=== PATIENT | female | born 1980 | race Caucasian/White ===

== ENCOUNTER 2016-06-04 08:45 | Emergency (ER) | payer OTHER ==
[2016-06-04 08:57] VITALS: BP 114/61; PULSE 100; RESP 16; TEMP 98.9
--- NOTE | 2016-06-04 09:09 | ED ---
ENT HPI - General Chief complaint: ENT Stated complaint: poss strep throat Time Seen by Provider: 06/04/16 09:01 Source: patient, RN notes reviewed Mode of arrival: ambulatory Limitations: no limitations - History of Present Illness Initial comments: Patient is a 35-year-old female presents to the emergency room for evaluation of throat pain. Patient states that throat pain for the past 3 days. Patient states her entire family has been diagnosed with strep. Patient states this morning she vomited. Patient states been having a constant headache and throat pain. Patient states taking ibuprofen and Percocet with no relief of symptoms. Patient states she's tried saltwater gargles, apple cider vinegar gargles with no relief of symptoms. Patient states she's had a fever yesterday. Patient denies abdominal pain, chest pain or ear pain. Patient denies cough or shortness of breath. - Related Data Home Medications Medication Instructions Recorded Confirmed Norgestimate-Ethinyl Estradiol 1 tab PO DAILY 12/12/15 06/04/16 [Trinessa Tablet] oxyCODONE-APAP 10-325MG [Percocet 1 tab PO Q6HR PRN 06/04/16 06/04/16 10-325 mg] Previous Rx's Medication Instructions Recorded ALPRAZolam [Xanax] 0.5 mg PO TID PRN #15 tablet 12/17/15 Doxepin [SINEquan] 10 mg PO HS PRN #30 cap 12/17/15 Gabapentin [Neurontin] 300 mg PO TID cap 12/17/15 Ibuprofen [Motrin] 600 mg PO TID PRN #0 tab 12/17/15 Sertraline [Zoloft] 100 mg PO DAILY #30 tab 12/17/15 Amoxicillin 500 mg PO Q12HR 7 Days 06/04/16 Ondansetron Odt [Zofran Odt] 4 mg PO Q8HR PRN #12 tab 06/04/16 Allergies Allergy/AdvReac Type Severity Reaction Status Date / Time guaifenesin Allergy Rapid Verified 06/04/16 08:57 Heart Rate propoxyphene napsylate Allergy Unknown Verified 06/04/16 08:57 [From Darvocet-N 100] acetaminophen AdvReac Nausea & Verified 06/04/16 08:57 [From Tylenol-Codeine #3] Vomiting & Diarrhea codeine phosphate AdvReac Nausea & Verified 06/04/16 08:57 [From Tylenol-Codeine #3] Vomiting & Diarrhea Review of Systems ROS Statement: Those systems with pertinent positive or pertinent negative responses have been documented in the HPI. ROS Other: All systems not noted in ROS Statement are negative. Past Medical History Past Medical History: Asthma, GERD/Reflux, Osteoarthritis (OA), Thyroid Disorder Additional Past Medical History / Comment(s): gallstones,migraines, hypothyroidism History of Any Multi-Drug Resistant Organisms: MRSA Date of last positivie culture/infection: 2009 MDRO Source:: face Past Surgical History: Section, Cholecystectomy, Joint Replacement, Orthopedic Surgery Additional Past Surgical History / Comment(s): KNEE REPLACEMENT LEFT KNEE X3, MULTIPLE ORTHOPEDIC SURGERIES TO LEFT KNEE. 2 C-sections Past Anesthesia/Blood Transfusion Reactions: No Reported Reaction Additional Past Anesthesia/Blood Transfusion Reaction / Comment(s): Vomitting following choleycystectomy may have been caused by the anesthetic. Past Psychological History: Anxiety, Depression, Panic Disorder Smoking Status: Current every day smoker Past Alcohol Use History: None Reported Past Drug Use History: None Reported - Past Family History none History Unknown: Yes General Exam - General Exam Comments Initial Comments: Sitting in exam room, no acute distress. Limitations: no limitations General appearance: alert, in no apparent distress Head exam: Present: atraumatic, normocephalic, normal inspection Eye exam: Present: normal appearance Expanded Throat exam: tonsillar erythema, tonsillomegaly Neck exam: Present: normal inspection Respiratory exam: Present: normal lung sounds bilaterally. Absent: respiratory distress Cardiovascular Exam: Present: regular rate, normal rhythm, normal heart sounds GI/Abdominal exam: Present: soft, normal bowel sounds. Absent: distended, tenderness, guarding, rebound, rigid Extremities exam: Present: normal inspection Back exam: Present: normal inspection Neurological exam: Present: alert, oriented X3, CN II-XII intact, normal gait Psychiatric exam: Present: normal affect, normal mood Skin exam: Present: warm, dry, intact, normal color. Absent: rash Course Vital Signs 06/04/16 08:53 Temperature 98.9 F Pulse Rate 100 Respiratory 16 Rate Blood Pressure 114/61 O2 Sat by Pulse 98 Oximetry Medical Decision Making - Medical Decision Making Patient is 35-year-old female presents to the emergency room for evaluation of throat pain and nausea. Patient's Family diagnosed with strep. Will treat patient for strep since she has been exposed to strep throat. Patient given Zofran for nausea. Advised patient to follow-up with primary care provider in 24-48 hours for reevaluation. Patient states she understands everything that was discussed with her. Return parameters discussed. Case discussed with Dr. Bhatia. Disposition Clinical Impression: Sore throat, Exposure to strep throat Disposition: HOME SELF-CARE Condition: Good Instructions: Strep Throat (ED) Additional Instructions: Take antibiotics as directed. Take Zofran as needed for nausea. Ibuprofen as needed for fever/sore throat. Saltwater gargles. Please follow up with primary care provider in 1-2 days. If any new symptom arises or symptoms worsen, return to ER as soon as possible. Prescriptions: Ondansetron Odt [Zofran Odt] 4 mg PO Q8HR PRN #12 tab PRN Reason: Nausea Amoxicillin 500 mg PO Q12HR 7 Days Referrals: Quin Whalen MD [Primary Care Provider] - 1-2 days Time of Disposition: 09:12
[2016-06-04] MEDS ORDERED: AMOXICILLIN 500 MG CAP PO STA (09:10)
[2016-06-04] MEDS ORDERED: ONDANSETRON ODT 4 MG TAB PO STA (09:10)
== END 2016-06-04 09:22 | disposition home or self-care (01) ==
LOC: EC 08:45
DX: J02.9 Acute pharyngitis, unspecified (principal); M19.90 Unspecified osteoarthritis, unspecified site; F41.0 Panic disorder [episodic paroxysmal anxiety]; F41.9 Anxiety disorder, unspecified; F32.9 Major depressive disorder, single episode, unspecified; F17.200 Nicotine dependence, unspecified, uncomplicated; Z20.818 Contact with and (suspected) exposure to other bacterial communicable diseases; Z88.8 Allergy status to other drugs, medicaments and biological substances; Z88.5 Allergy status to narcotic agent; Z79.3 Long term (current) use of hormonal contraceptives; Z79.899 Other long term (current) drug therapy; Z86.14 Personal history of Methicillin resistant Staphylococcus aureus infection
CPT/HCPCS: 87081; 87430; 99284

== ENCOUNTER → 2017-02-14 | Outpatient (CLI) | payer OTHER ==
[2017-02-14 13:03] LABS: Basophils % (A) 0 %; Eosinophils # (A) 0.1 k/uL (0-0.7); Eosinophils % (A) 1 %; HCT 42.8 % (34.0-46.0); HGB 13.7 gm/dL (11.4-16.0); Lymphocytes # (A) 3.1 k/uL (1.0-4.8); Lymphocytes % (A) 35 %; MCH 31.1 pg (25.0-35.0); MCV 97.3 fL (80.0-100.0); Mean Platelet Volume 7.5; Monocytes # (A) 0.6 k/uL (0-1.0); Monocytes % (A) 7 %; Neutrophils # (A) 4.7 k/uL (1.3-7.7); Neutrophils % (A) 54 %; Platelet Count 282 k/uL (150-450); RDW 13.4 % (11.5-15.5); WBC 8.7 k/uL (3.8-10.6)
== END | disposition home or self-care (01) ==
LOC: LABPAT 12:32
PROVIDERS: ATTEND Obstetrics & Gynecology
DX: Z01.818 Encounter for other preprocedural examination (principal)
CPT/HCPCS: 36415; 85025

== ENCOUNTER 2017-02-15 09:23 | Day surgery (SDC) | payer OTHER ==
[2017-02-09 23:10] VITALS: BMI 23.2
--- NOTE | 2017-02-14 14:37 | HP ---
HISTORY AND PHYSICAL HISTORY OF PRESENT ILLNESS: The patient is a 36-year-old 3, para 3-0-0-3, who was referred from another provider for evaluation of contraceptive options. She presented specifically requesting permanent contraception with tubal ligation. I discussed multiple other options of reversible and long-term contraception which she declined in favor of permanent sterilization. PAST MEDICAL HISTORY: Significant for anemia and reported anxiety. PAST SURGICAL HISTORY: She had a section in 1999 and 2007, she had a cholecystectomy in 2014. She had knee replacements with knee surgeries between 2009 and 2015. There was no reported anesthetic concerns. OBSTETRICAL HISTORY: 3, para 3-0-0-3 with 1 vaginal delivery followed by 2 sections. GYNECOLOGIC HISTORY: Is unremarkable with no history of any infections to include STDs. FAMILY HISTORY: Noncontributory. SOCIAL HISTORY: The patient is and is a 1 pack per day smoker. She denies any significant alcohol or any other social concerns. CURRENT MEDICATIONS: Include: 1. Baclofen 10 mg 3 times daily. 2. Percocet 5/325 mg q.6 hours p.r.n. ALLERGIES: Are to GUAIFENESIN WHICH CAUSES TACHYCARDIA. She reports reportedly also has had REACTIONS TO DARVOCET AND TYLENOL WITH CODEINE. REVIEW OF SYSTEMS: Is confined to history of present illness. PHYSICAL EXAMINATION: Vital signs are stable. The patient is afebrile. In general, this is a well- developed, well-nourished white female in no acute distress. HEENT demonstrates PERRLA, EOMI, her oropharynx is clear. NECK: Supple without adenopathy and the thyroid is normal to palpation. Her heart has regular rhythm and rate without murmur. Her lungs are clear to auscultation bilaterally in all reed. Her abdomen is nondistended, has normoactive bowel sounds, soft, nontender, without any palpable masses, hepatosplenomegaly, or hernias. Her extremities without any cyanosis, clubbing, or edema and are nontender to palpation bilaterally. Pelvic examination demonstrates normal external genitalia and BUS with normal vaginal mucosa and cervix. There is no cervical motion tenderness. Uterus is 4-5 weeks in size, acutely retroverted, mobile, nontender, normal in shape. The adnexa are normal nontender without mass bilaterally. ASSESSMENT: Undesired fertility. We discussed multiple options for contraception including long- term but reversible methods. The patient has declined all of these in favor of proceeding to laparoscopic bilateral tubal occlusion using Filshie clips. The risks and complications of the procedure have been thoroughly discussed including the risk for bleeding, bleeding requiring transfusion, infection, and injury to local structures to specifically include the bowel, bladder, and ureters. I have given special attention to the concerns for bowel injury given her history of previous surgeries, specifically cholecystectomy. She understood all this and has agreed to proceed. We are scheduled for the procedure as outlined above on the morning of February 15, 2017. MMODL / IJN: [id number] /
[~2017-02-15 09:23] MED LIST: DEXAMETHASONE SOD PHOSPHATE 10 MG/ML 1 ML VIAL IV ONE; LACTATED RINGERS 1,000 ML IV SCH; LIDOCAINE 1% 20 ML VIAL (10MG/ML) FOR IV START INTRADERMA PRN; MIDAZOLAM 2 MG/2 ML VIAL IV PRN; ONDANSETRON 4 MG/2 ML VIAL IVP ONE; Pre Op ABX Message 1 EACH MISC MISCELLANE ONE; SCOPOLAMINE 1.5MG/72HR PATCH TRANSDERM ONE
[2017-02-15] MEDS ORDERED: ONDANSETRON 4 MG/2 ML VIAL IVP PRN (10:18)
[2017-02-15] MEDS ORDERED: PROPOFOL 10 MG/ML 20 ML VIAL IV ONE (10:18)
[2017-02-15] MEDS ORDERED: LIDOCAINE 1% INJ 10MG/ML (20 ML MDV) ONE (10:18)
[2017-02-15] MEDS ORDERED: HYDROmorphone (PF) 1 MG/ML ONE (10:18)
[2017-02-15] MEDS ORDERED: SUCCINYLCHOLINE CHLORIDE 100 MG/5 ML SYR IV ONE (10:18)
[2017-02-15] MEDS ORDERED: GLYCOPYRROLATE 0.2 MG/ML 2 ML VIAL ONE (10:18)
[2017-02-15] MEDS ORDERED: ROCURONIUM BROMIDE 10 MG/ML 10 ML VIAL IV ONE (10:18)
[2017-02-15] MEDS ORDERED: KETOROLAC 30 MG/ML 1 ML VIAL IVP PRN (10:18)
[2017-02-15] MEDS ORDERED: IBUPROFEN 600 MG TAB PO PRN (10:18)
[2017-02-15] MEDS ORDERED: fentaNYL (PF) 50 MCG/ML 2 ML AMP ONE (10:18)
[2017-02-15] MEDS ORDERED: NEOSTIGMINE 1 MG/ML 10 ML VIAL ONE (10:18)
[2017-02-15] MEDS ORDERED: METOCLOPRAMIDE 5 MG/ML 2 ML VIAL IVP PRN (10:18)
[2017-02-15] MEDS ORDERED: MIDAZOLAM 2 MG/2 ML VIAL ONE (10:18)
[2017-02-15] MEDS ORDERED: SIMETHICONE 80 MG CHEWABLE PO PRN (10:18)
[2017-02-15] MEDS ORDERED: diphenhydrAMINE 50 MG/ML 1 ML VIAL IVP PRN (10:18)
[2017-02-15] MEDS ORDERED: LACTATED RINGERS 1,000 ML IV SCH (10:30)
[2017-02-15] MEDS ORDERED: BUPIVACAINE (PF) 0.5% 30 ML VIAL SQ ONE (10:37)
--- NOTE | 2017-02-15 10:56 | P.OP ---
Date of Procedure: 02/15/17 Preoperative Diagnosis: #1. Undesired fertility Postoperative Diagnosis: Same Procedure(s) Performed: #1. Laparoscopic bilateral tubal occlusion using Filshie clips Anesthesia: TRINO Surgeon: Danny Mccauley Estimated Blood Loss (ml): 5 IV fluids (ml): 800 Urine output (ml): 5 Pathology: none sent Condition: stable Disposition: PACU Operative Findings: Preoperative pelvic examination demonstrated an acutely retroverted 4-5 week mobile normal shaped uterus with normal adnexa bilaterally. Intraoperatively, these findings were confirmed. There was no evidence of any pathology in the pelvis nor any seen in the upper abdomen though there was an omental adhesion to near the umbilicus which was noted after placement of the optical trocar which initially was noted to be underneath the omentum but able to be drawn back and removed above it ultimately. Description of Procedure: The patient was prepped and draped in usual fashion after general endotracheal anesthesia was administered by the anesthesiologist. A speculum was placed after draining the bladder of approximately 5 mL of clear yusra urine. The anterior lip of the cervix was grasped with a single-tooth tenaculum and an acorn cannula placed for manipulation. Attention was then turned to the abdomen where a site was selected in a vertical fold of the umbilicus allowing for a 5 mm incision in the vertical plane. A 5 mm optical trocar was then inserted without difficulty and a pneumoperitoneum infused. The omentum was initially noted to be above the level of the tip of the trocar. As result the trocar was gradually brought back and out of the omentum until a clear view of the pelvis was obtained. Trendelenburg positioning was utilized and a site was selected in the midline approximately 4-5 cm above the pubic symphysis in the midline where an 8 mm incision was made in the transverse plane allowing insertion of an 8 mm trocar under direct visualization without difficulty. The blunt probe was utilized to sweep the bowel from the pelvis. The findings are as noted above. All findings in the pelvis appeared normal with normal uterus, tubes, and ovaries. There was no evidence of endometriosis or adhesive disease in the pelvis at all. The probe was replaced with a Filshie clip applicator which was utilized to place a Filshie clip across the entire isthmic portion of the right fallopian tube approximately 2-3 cm above the cornu of the uterus where was firmly affixed. A similar operation was carried out on the left side without difficulty. As no further pathology was noted anywhere in the abdomen or pelvis, the pneumoperitoneum was evacuated and the trochars removed under direct visualization. There was minimal ongoing bleeding. Estimated blood loss for the case was approximately 5 mL or less. The skin incisions were closed with interrupted subcuticular stitches of 4-0 Vicryl followed by Steri- Strips placed with Mastisol. The incisions were infused with a total of 10 mL of half percent Marcaine without epinephrine equally divided between the 2 incisions. All sponge, instrument, and needle counts were correct. There were no compilations. The patient tolerated the procedure well and proceeded to the recovery room in stable condition.
[2017-02-15 11:14] VITALS: TEMP 97.9
[2017-02-15] MEDS: HYDROmorphone 0.5 MG/0.5 ML SYRINGE IVP PRN ×2 (11:23→11:31)
[2017-02-15] MEDS ORDERED: diphenhydrAMINE 50 MG/ML 1 ML VIAL IVP ONE (11:31)
[2017-02-15] MEDS: MEPERIDINE 50 MG/ML SYRINGE IVP ONE ×2 (12:15→12:22)
[2017-02-15 12:57] VITALS: BP 99/63; PULSE 62; RESP 18
== END 2017-02-15 13:01 | disposition home or self-care (01) ==
LOC: OR 09:23
PROVIDERS: ATTEND Obstetrics & Gynecology
DX: Z30.2 Encounter for sterilization (principal); F41.9 Anxiety disorder, unspecified; M19.90 Unspecified osteoarthritis, unspecified site; K21.9 Gastro-esophageal reflux disease without esophagitis; J45.909 Unspecified asthma, uncomplicated; F17.200 Nicotine dependence, unspecified, uncomplicated; Z79.1 Long term (current) use of non-steroidal anti-inflammatories (NSAID); Z79.899 Other long term (current) drug therapy; Z88.5 Allergy status to narcotic agent; Z88.8 Allergy status to other drugs, medicaments and biological substances
CPT/HCPCS: 81025; 58671; J2250; J1200; J1100; J2710; J2175; J2405; J2001; J3010; J1885; J1170 ×2; J0330; J2704

== ENCOUNTER 2020-04-23 17:07 | Emergency (ER) | payer OTHER, BC ==
[2020-04-23 18:18] LABS: Appearance,Urine Clear (Clear); Bacteria,Urine Rare /hpf; Bilirubin,Urine Negative (Negative); Blood,Urine Negative (Negative); Color,Urine Light Yellow; Glucose,Urine (UA) Negative (Negative); Ketones,Urine Negative (Negative); Leukocyte Esterase,Urine Trace (Negative); Nitrite,Urine Negative (Negative); PH, Urine 5.5 (5.0-8.0); Protein,Urine Negative (Negative); Specific Gravity,Urine 1.006 (1.001-1.035); Squamous Epithelial Cell,Urine 1 /hpf (0-4); Urobilinogen,Urine <2.0 mg/dL (<2.0); WBC,Urine <1 /hpf (0-5)
--- NOTE | 2020-04-23 19:08 | CT ---
EXAMINATION TYPE: CT abdomen pelvis wo con DATE OF EXAM: 04/23/2020 COMPARISON: 08/25/2013 HISTORY: Possible renal stone, abdomen pain CT DLP: 382.2 mGycm Automated exposure control for dose reduction was used. Images obtained from the diaphragm to the floor the pelvis with no contrast. The lung bases are clear. There is no pleural effusion. Heart size is normal. There is no pericardial effusion. Liver spleen stomach pancreas appear normal. The bile ducts are not dilated. There are clips from cho lecystectomy. There is no adrenal mass. Kidneys have normal size. There is some fullness of the left and right adrián l pelvis. The ureters are not dilated. There is no retroperitoneal adenopathy. Bladder distends bert hly. There is no inguinal hernia. There is small amount of free fluid in the cul-de-sac. Uterus is re troverted. Lumbar vertebra have normal spacing and alignment. Posterior elements are intact. The bony pelvis is intact. Hip joints appear normal. Appendix appears normal and is posterior and medial. There is atherosclerotic vascular calcification. There is no mesenteric edema. There is no ascites or free air. There is no bowel obstruction. IMPRESSION: Compared to old exam there is enlargement of the left and right renal pelvis. No renal or ureteral ca lculus identified. Normal appendix. There is small amount of free fluid in the cul-de-sac.
[2020-04-23] MEDS ORDERED: CEPHALEXIN 500 MG CAP PO STA (19:32)
[2020-04-23] MEDS ORDERED: FLUCONAZOLE 150 MG TAB PO STA (19:32)
--- NOTE | 2020-04-23 19:35 | ED ---
Female Urogenital HPI - General Chief complaint: Urogenital Stated complaint: Kidney pain Time Seen by Provider: 04/23/20 17:35 Source: patient Mode of arrival: ambulatory Limitations: no limitations - History of Present Illness Initial comments: Patient is a 39-year-old female with no past medical history who presents to the emergency department with reported UTI symptoms. Patient states that for the past week she has had suprapubic abdominal pain and burning with urination. She did have some old Keflex at home for which she started taking. States her symptoms improved however got worse. States that the pain has now extended up to her left flank. No history of kidney stones. Denies hematuria. No abnormal vaginal bleeding or discharge. Patient does have a history of a tubal. Denies any changes in her bowel habits. No other alleviating, precipitating or modifying factors Last Menstrual Period: 03/26/20 - Related Data Home Medications Medication Instructions Recorded Confirmed oxyCODONE-APAP 10-325MG [Percocet 1 tab PO TID PRN 06/04/16 02/08/17 10-325 mg] ALPRAZolam [Xanax] 0.5 mg PO DAILY PRN 02/08/17 02/08/17 Baclofen 10 mg PO TID PRN 02/08/17 02/08/17 Ibuprofen [Motrin] 200 - 400 mg PO BID PRN 02/08/17 02/08/17 Previous Rx's Medication Instructions Recorded Cephalexin [Keflex] 500 mg PO Q6HR #28 cap 04/23/20 Fluconazole [Diflucan] 150 mg PO ONCE #1 tab 04/23/20 Allergies Allergy/AdvReac Type Severity Reaction Status Date / Time guaifenesin Allergy Rapid Verified 04/23/20 17:37 Heart Rate propoxyphene napsylate Allergy "slow Verified 04/23/20 17:37 [From Darvocet-N 100] pulse" acetaminophen AdvReac Nausea & Verified 04/23/20 17:37 [From Tylenol-Codeine #3] Vomiting & Diarrhea codeine phosphate AdvReac Nausea & Verified 04/23/20 17:37 [From Tylenol-Codeine #3] Vomiting & Diarrhea Review of Systems ROS Statement: Those systems with pertinent positive or pertinent negative responses have been documented in the HPI. ROS Other: All systems not noted in ROS Statement are negative. Past Medical History Past Medical History: Asthma, GERD/Reflux, Osteoarthritis (OA) Additional Past Medical History / Comment(s): gallstones, migraines, fast pulse from caffeine intake, History of Any Multi-Drug Resistant Organisms: MRSA Date of last positivie culture/infection: 2009 MDRO Source:: face Past Surgical History: Section, Cholecystectomy, Joint Replacement, Orthopedic Surgery Additional Past Surgical History / Comment(s): marc KNEE REPLACEMENT (LEFT KNEE X3), MULTIPLE ORTHOPEDIC SURGERIES TO LEFT KNEE, arthroscopy marc knees Past Anesthesia/Blood Transfusion Reactions: Previous Problems w/ Anesthesia, Postoperative Nausea & Vomiting (PONV) Additional Past Anesthesia/Blood Transfusion Reaction / Comment(s): Vomitting following choleycystectomy(clip slipped per pt) , has had low BP after surgery Past Psychological History: Anxiety, Panic Disorder Smoking Status: Current every day smoker Past Alcohol Use History: None Reported Past Drug Use History: None Reported - Past Family History Mother Family Medical History: No Reported History none History Unknown: Yes General Exam Limitations: no limitations Course Vital Signs 04/23/20 04/23/20 17:35 20:03 Temperature 98.1 F 98.6 F Pulse Rate 99 74 Respiratory 18 15 Rate Blood Pressure 105/66 132/71 O2 Sat by Pulse 99 98 Oximetry Medical Decision Making - Medical Decision Making Upon arrival the patient is placed in room 32. A thorough history and physical exam is performed. Patient does provide a urine sample which demonstrates trace esterase with rare bacteria. Patient is sent for a CT with her permission and without testing. Demonstrates enlargement of the left right renal pelvis however no renal or ureteral calculus. Patient is given a dose of Keflex. Requesting Diflucan as she normally gets yeast infections with antibiotics. Patient given a dose in the emergency department. Patient is prescribed Keflex 4 times a day. Also given a second dose of Diflucan to take after her Keflex is finished. Return to the emergency room for any new or worsening symptoms. Follow up with her primary care doctor in 2 to 4 days. Patient discharged in stable condition - Lab Data Lab Results 04/23/20 Range/Units 17:59 Urine Color Light Yellow Urine Appearance Clear (Clear) Urine pH 5.5 (5.0-8.0) Ur Specific Walker 1.006 (1.001-1.035) Urine Protein Negative (Negative) Urine Glucose (UA) Negative (Negative) Urine Ketones Negative (Negative) Urine Blood Negative (Negative) Urine Nitrite Negative (Negative) Urine Bilirubin Negative (Negative) Urine Urobilinogen <2.0 (<2.0) mg/dL Ur Leukocyte Esterase Trace H (Negative) Urine WBC <1 (0-5) /hpf Ur Squamous Epith Cells 1 (0-4) /hpf Urine Bacteria Rare H (None) /hpf Disposition Clinical Impression: UTI (urinary tract infection) Disposition: HOME SELF-CARE Condition: Stable Instructions (If sedation given, give patient instructions): Urinary Tract Infection in Women (ED) Additional Instructions: Please follow up with your primary care doctor in 2-4 days. Return to the emergency room for any new or worsening symptoms Prescriptions: Fluconazole [Diflucan] 150 mg PO ONCE #1 tab Cephalexin [Keflex] 500 mg PO Q6HR #28 cap Is patient prescribed a controlled substance at d/c from ED?: No Referrals: Quin Whalen MD [Primary Care Provider] - 1-2 days Time of Disposition: 19:35
[2020-04-23 20:05] VITALS: BP 132/71; PULSE 74; RESP 15; TEMP 98.6
== END 2020-04-23 20:03 | disposition home or self-care (01) ==
LOC: EC 17:07
DX: N39.0 Urinary tract infection, site not specified (principal); J45.909 Unspecified asthma, uncomplicated; M19.90 Unspecified osteoarthritis, unspecified site; F41.9 Anxiety disorder, unspecified; F17.200 Nicotine dependence, unspecified, uncomplicated; Z90.49 Acquired absence of other specified parts of digestive tract
CPT/HCPCS: 74176; 81001; 96372; 96376; 99284

== ENCOUNTER 2020-12-21 11:03 | Emergency (ER) | payer BC, OTHER ==
--- NOTE | 2020-12-21 13:48 | ED ---
General Adult HPI - General Chief complaint: Abdominal Pain Stated complaint: abd pain Time Seen by Provider: 12/21/20 12:46 Source: patient, RN notes reviewed Mode of arrival: ambulatory Limitations: no limitations - History of Present Illness Initial comments: 40-year-old female presents to the emergency department with multiple complaints. Patient is most concerned about stool changes that have occurred since June 2020. States she has observed worms in her stool. Reports previous treatment included eating pumpkin seeds, but has not had any prescribed medications. Patient states she saw a worm in her stool as morning. Patient denies abdominal pain, but does report appetite changes stating that she is working seven 12s per week and today has been her first day off in several weeks. States she has been consuming large amounts of caffeine instead of eating healthy foods. Patient also complains of oral mucosal irritation and cracking at the angles of her mouth. This is been an ongoing issue that she attributes to drinking a lot of pop and monster energy drinks. However patient states she is concerned about a possible oral fungal infection after reading about the symptoms online. Patient complains of vaginal discharge that varies from pink to slightly bloody to best for the past 4-6 weeks. States she has been with a new sexual partner for the past year and is somewhat concerned about a sexually transmitted infection. States she has not had regular PROGRAM OFFICER care for the past several years. Also complains of urinary frequency, but denies burning or discomfort. Patient denies fever, chills, headache, dizziness, chest pain, and abdominal pain. - Related Data Home Medications Medication Instructions Recorded Confirmed oxyCODONE-APAP 10-325MG [Percocet 0.5 tab PO DAILY 06/04/16 12/21/20 10-325 mg] Previous Rx's Medication Instructions Recorded Mebendazole [Emverm chew] 100 mg PO BID 3 Days #6 tab 12/21/20 Nystatin 5 ml PO QID 7 Days #140 ml 12/21/20 Allergies Allergy/AdvReac Type Severity Reaction Status Date / Time guaifenesin Allergy Rapid Verified 12/21/20 14:33 Heart Rate propoxyphene napsylate Allergy "slow Verified 12/21/20 14:33 [From Darvocet-N 100] pulse" acetaminophen AdvReac Nausea & Verified 12/21/20 14:33 [From Tylenol-Codeine #3] Vomiting & Diarrhea amoxicillin [From Augmentin] AdvReac Unknown Verified 12/21/20 14:33 clavulanic acid AdvReac Unknown Verified 12/21/20 14:33 [From Augmentin] codeine phosphate AdvReac Nausea & Verified 12/21/20 14:33 [From Tylenol-Codeine #3] Vomiting & Diarrhea Review of Systems ROS Statement: Those systems with pertinent positive or pertinent negative responses have been documented in the HPI. ROS Other: All systems not noted in ROS Statement are negative. Past Medical History Past Medical History: Asthma, GERD/Reflux, Osteoarthritis (OA) Additional Past Medical History / Comment(s): gallstones, migraines, fast pulse from caffeine intake, History of Any Multi-Drug Resistant Organisms: MRSA Date of last positivie culture/infection: 2009 MDRO Source:: face Past Surgical History: Section, Cholecystectomy, Joint Replacement, Orthopedic Surgery Additional Past Surgical History / Comment(s): marc KNEE REPLACEMENT (LEFT KNEE X3), MULTIPLE ORTHOPEDIC SURGERIES TO LEFT KNEE, arthroscopy marc knees Past Anesthesia/Blood Transfusion Reactions: Previous Problems w/ Anesthesia, Postoperative Nausea & Vomiting (PONV) Additional Past Anesthesia/Blood Transfusion Reaction / Comment(s): Vomitting following choleycystectomy(clip slipped per pt) , has had low BP after surgery Past Psychological History: Anxiety, Panic Disorder Smoking Status: Current every day smoker Past Alcohol Use History: None Reported Past Drug Use History: None Reported - Past Family History Mother Family Medical History: No Reported History none History Unknown: Yes General Exam Limitations: no limitations (Well-developed, well-nourished female in no acute distress.) General appearance: alert, in no apparent distress ENT exam: Present: other (Cracked skin noted at the angles of the mouth bilaterally; oral mucosa intact with no erosions, lesions, or vesicles noted.) Neck exam: Present: normal inspection. Absent: tenderness, meningismus, lymphadenopathy Respiratory exam: Present: normal lung sounds bilaterally. Absent: respiratory distress, wheezes, rales, rhonchi, stridor Cardiovascular Exam: Present: regular rate, normal rhythm, normal heart sounds. Absent: systolic murmur, diastolic murmur, rubs, gallop, clicks GI/Abdominal exam: Present: soft, normal bowel sounds, other (Patient provides a picture of stool that she passed this morning and identifies an area that she states is worm. Patient reports other members of her family have had to be treated for parasitic infections in the past 6 months.). Absent: distended, tenderness, guarding, rebound, rigid Rectal exam: Present: normal inspection External exam: Present: normal external exam. Absent: erythema, lesions Speculum exam: Present: vaginal bleeding (Scant amount of thin bleeding noted upon speculum exam; no obvious vaginal discharge; no lesions, abrasions, or erythema noted) By manual exam: Present: normal by manual exam. Absent: cervical motion tenderness Back exam: Present: normal inspection. Absent: CVA tenderness (R), CVA tenderness (L) Neurological exam: Present: alert, oriented X3, CN II-XII intact Psychiatric exam: Present: normal affect, normal mood Skin exam: Present: warm, dry, intact, normal color. Absent: rash Course Vital Signs 12/21/20 12/21/20 11:35 16:40 Temperature 97.2 F L 98.2 F Pulse Rate 107 H 74 Respiratory 18 16 Rate Blood Pressure 107/71 129/70 O2 Sat by Pulse 100 99 Oximetry Medical Decision Making - Medical Decision Making 40-year-old female is evaluated for multiple complaints, including vaginal discharge and bleeding, stool changes since June, urinary frequency, and oral mucosal discomfort at the angles of her mouth. Patient reports small amount of vaginal bleeding since November 28. Upon exam, there is thin, dark red vaginal bleeding. Cervix is nontender, not erythematous, nor irritated in appearance. Bimanual exam does not produce CMT or adnexal discomfort. She was instructed to reestablish care with PROGRAM OFFICER for further evaluation and treatment. Vaginal discharge is not present upon exam. Due to patient's description and concern for STI, swabs were collected and patient was given treatment a to discharge she will have difficulty with follow-up. Patient instructed on safe sex practices. Patient also complained of urinary frequency. Patient has been observed drinking 2 bottles of water and one 20 ounce Pepsi. Urinalysis was negative. Patient has no back, flank, or suprapubic pain; she is afebrile and has no dysuria. Regarding the stool changes, patient will be prescribed mebendazole for parasitic treatment; she was unable to provide a stool specimen while present today. Also suggested obtaining [id number] Pin-Away if unable to get the mebendazole prescription. Lastly, patient has complained about oral mucosal discomfort with dry cracking skin noted at the angles of her mouth. Discussed dietary deficit including iron and/or B12 versus oral irritating agents such as excessive consumption of pop versus oral fungal etiology. Patient is concerned that this is an infectious process therefore nystatin swish and spit was prescribed and patient was instructed on proper use. Follow-up care was reviewed with patient. Return parameters were discussed in detail. Patient verbalizes understanding and agrees with this plan. This case was discussed with my attending Dr. Martin. - Lab Data Lab Results 12/21/20 12/21/20 Range/Units 13:50 15:40 Urine Color Light Yellow Urine Appearance Clear (Clear) Urine pH 7.0 (5.0-8.0) Ur Specific [place] 1.003 (1.001-1.035) Urine Protein Negative (Negative) Urine Glucose (UA) Negative (Negative) Urine Ketones Negative (Negative) Urine Blood Negative (Negative) Urine Nitrite Negative (Negative) Urine Bilirubin Negative (Negative) Urine Urobilinogen <2.0 (<2.0) mg/dL Ur Leukocyte Esterase Negative (Negative) Trichomonas Ag (Rapid) Negative (Negative) Disposition Clinical Impression: Vaginal discharge, Parasites in stool, Angular cheilitis Disposition: HOME SELF-CARE Condition: Stable Instructions (If sedation given, give patient instructions): Vaginal Discharge (ED), Dry Mouth (ED) Additional Instructions: Follow-up with PROGRAM OFFICER for vaginal bleeding. Take mebendazole or OTC Pin-Away for suspected parasite. Tke Oral antifungal. If any of your pelvic cultures were positive, you will receive a call, however you have received appropriate treatment. In the meantime, to not engage in unprotected sex. Follow up with her primary care provider for a recheck in the next couple of days. Prescriptions: Mebendazole [Emverm chew] 100 mg PO BID 3 Days #6 tab Nystatin 5 ml PO QID 7 Days #140 ml Is patient prescribed a controlled substance at d/c from ED?: No Referrals: Quin Whalen MD [Primary Care Provider] - 1-2 days Time of Disposition: 16:29
[2020-12-21 13:55] LABS: Appearance,Urine Clear (Clear); Bilirubin,Urine Negative (Negative); Blood,Urine Negative (Negative); Color,Urine Light Yellow; Glucose,Urine (UA) Negative (Negative); Ketones,Urine Negative (Negative); Leukocyte Esterase,Urine Negative (Negative); Nitrite,Urine Negative (Negative); Protein,Urine Negative (Negative); Specific Gravity,Urine 1.003 (1.001-1.035); Urobilinogen,Urine <2.0 mg/dL (<2.0)
[2020-12-21] MEDS ORDERED: AZITHROMYCIN 500 MG TAB PO STA (15:19)
[2020-12-21] MEDS ORDERED: cefTRIAXone 250 MG VIAL IM STA (15:19)
[2020-12-21] MEDS ORDERED: metroNIDAZOLE 500 MG TAB PO STA (15:19)
[2020-12-21 16:41] VITALS: BP 129/70; PULSE 74; RESP 16; TEMP 98.2
[2020-12-23 15:24] LABS: N. gonorrhoeae,PCR Negative (Neg,Equiv); Neisseria Source Urine
[2020-12-23 15:30] LABS: C. trachomatis,PCR Negative (Neg,Equiv); Chlamydia trachomatis Source Urine
== END 2020-12-21 16:41 | disposition home or self-care (01) ==
LOC: EC 11:03
DX: N89.8 Other specified noninflammatory disorders of vagina (principal); B82.9 Intestinal parasitism, unspecified; K13.0 Diseases of lips; K21.9 Gastro-esophageal reflux disease without esophagitis; J45.909 Unspecified asthma, uncomplicated; F17.200 Nicotine dependence, unspecified, uncomplicated; Z79.899 Other long term (current) drug therapy; Z88.0 Allergy status to penicillin; Z88.1 Allergy status to other antibiotic agents; Z88.5 Allergy status to narcotic agent; Z88.6 Allergy status to analgesic agent; Z90.49 Acquired absence of other specified parts of digestive tract
CPT/HCPCS: 81003; 87808; 87491; 87591; 99284; 96372; J0696

== ENCOUNTER → 2022-10-13 | Outpatient (CLI) | payer BC ==
[2022-10-13 16:30] LABS: ALT 13 U/L (8-44); AST 17 U/L (13-35); Albumin 4.4 d/dL (3.8-4.9); Albumin/Globulin Ratio 1.63 Ratio (1.60-3.17); Alkaline Phosphatase 71 U/L (41-126); Blood Urea Nitrogen 6.7 mg/dL (9.0-27.0); Calcium 9.3 mg/dL (8.7-10.3); Carbon Dioxide 25.6 mmol/L (21.6-31.8); Chloride 106 mmol/L (96-109); Globulin 2.7 d/dL (1.6-3.3); Glucose 89 mg/dL (70-110); Potassium 4.4 mmol/L (3.5-5.5); Sodium 142 mmol/L (135-145); Total Bilirubin 0.2 mg/dL (0.3-1.2); Total Protein 7.1 d/dL (6.2-8.2)
[2022-10-13 18:06] LABS: HCT 38.3 % (37.2-46.3); HGB 12.5 d/dL (12.0-15.0); MCH 31.3 pg (27.0-32.0); MCHC 32.6 d/dL (32.0-37.0); Mean Platelet Volume 10.5 FL (9.5-12.2); NRBC Per 100 WBC 0 X 10*3/uL (0.00-0.01); Platelet Count 335 X 10*3/uL (140-440); RBC 3.99 X 10*6/uL (4.10-5.20); RDW 13.1 % (11.5-14.5); WBC 11.26 X 10*3/uL (4.50-10.00)
[2022-10-14 00:18] LABS: Cryptosporidium Antigen Negative (Negative)
== END | disposition home or self-care (01) ==
LOC: LABWHC1 11:18
PROVIDERS: ATTEND Internal Medicine
DX: R19.7 Diarrhea, unspecified (principal); R63.4 Abnormal weight loss
CPT/HCPCS: 36415; 80053; 83630; 84443; 85027; 87045; 87046; 87328; 87329

== ENCOUNTER → 2024-06-25 | Outpatient (CLI) | payer BC ==
--- NOTE | 2024-06-25 08:24 | US ---
EXAMINATION TYPE: US abdomen complete DATE OF EXAM: 06/25/2024 COMPARISON: CT abdomen and pelvis April 04, 2022 CLINICAL INDICATION: Female, 44 years old with history of R10.11 RUQ PAIN R10.13 EPIGASTRIC PAIN; humberto n gb removed. TECHNIQUE: Grayscale and color Doppler imaging of the abdomen was performed. FINDINGS: EXAM MEASUREMENTS: Liver Length: 19.4 cm Gallbladder Wall: Surgically absent CBD: .5 cm, color Doppler imaging was utilized to isolate the common bile duct for measurement. Spleen: 8.5 cm Right Kidney: 10.9 x 3.8 x 4.6 cm Left Kidney: 11.7 x 4.2 x 4.5 cm SENIOR CAREGIVER NOTES: Pancreas: wnl Liver: wnl, no dilated ducts, masses or cysts. Gallbladder: Surgically absent Evidence for sonographic George's sign: no CBD: wnl Spleen: wnl Right Kidney: wnl, No hydronephrosis, calculi or masses seen Left Kidney: wnl, No hydronephrosis, calculi or masses seen Upper IVC: wnl Abd Aorta: wnl The liver is homogenous. Liver redemonstrated enlarged. The intrahepatic portion of the IVC and visu alized abdominal aorta are within normal limits. Gallbladder is surgically absent. Common bile duct is unremarkable. The visualized portions of the pancreas are homogenous. The spleen is unremarkable . Kidneys are symmetric and free of hydronephrosis. No renal lesions are seen. IMPRESSION: No acute findings are seen. [facility], , 06/25/2024 8:22 AM
== END | disposition home or self-care (01) ==
LOC: RADUSWWP 07:43
PROVIDERS: ATTEND Internal Medicine
DX: R10.11 Right upper quadrant pain (principal); R10.13 Epigastric pain
CPT/HCPCS: 76700